=== PATIENT | male | born 1940 | race Caucasian/White ===

== ENCOUNTER 2018-11-11 13:41 | Inpatient (IN) | payer MEDICARE, OTHER ==
--- NOTE | 2018-11-11 13:51 | ED ---
Palpitations / Dysrhythmia - HPI Summary HPI Summary: This pt is an 78 y/o male presenting to [facility] via EMS for rapid heart rate. Pt reports he was playing golf yesterday 18 holes and it was warm. He states he had about 4 episodes of dizziness yesterday while he was playing. Pt notes he was drinking water yesterday and drank about 16 ounces of water while he was playing but he was also sweating a lot and it was warm. Patient went home and took his blood pressure last evening and his heart rate was 145 bpm. He notes his heart rate is normally 61 bpm. Pt went to see his PCP today and had an EKG. EKG revealed fast heart rate and was sent to the ED. EMS tried vagal maneuver with no effect. Hx of LBBB (for 25 years now). Denies hx of SVT. - History of Current Complaint Hx Obtained From: Patient Onset/Duration: Lasting Hours, Still Present Severity Currently: Moderate Character: Fast Aggravating: Nothing Alleviating: Nothing Associated Signs & Symptoms: Dizzy - Allergy/Home Medications Allergies/Adverse Reactions: Allergies Allergy/AdvReac Type Severity Reaction Status Date / Time No Known Allergies Allergy Verified 08/30/15 09:46 PMH/Surg Hx/FS Hx/Imm Hx Cardiovascular History: Reports: Hx Hypertension - borderline, Other Cardiovascular Problems/Disorders - LBBB GI History: Reports: Other GI Disorders - right flank pain History: Reports: Other Problems/Disorders - enlarged prostate Sensory History: Reports: Hx Cataracts - BILAT EYES, Hx Contacts or Glasses, Hx Hearing Aid - BILAT Opthamlomology History: Reports: Hx Cataracts - BILAT EYES, Hx Contacts or Glasses - Cancer History Cancer Type, Location and Year: skin, basal cell nose and chest - Surgical History Surgery Procedure, Year, and Place: vasectomy Hx Anesthesia Reactions: No Infectious Disease History: No Infectious Disease History: Denies: Traveled Outside the [place] in Last 30 Days - Family History Known Family History: Positive: Cardiac Disease Family History: Colon CA. - Social History Alcohol Use: Daily Alcohol Amount: 1 beer/day Substance Use Type: Reports: None Smoking Status (MU): Never Smoked Tobacco Type: Cigarettes Have You Smoked in the Last Year: No Review of Systems Negative: Fever Cardiovascular: Other - POSITIVE: rapid heart rate Neurological: Other - POSITIVE: dizziness All Other Systems Reviewed And Are Negative: Yes Physical Exam - Summary Physical Exam Summary: Constitutional: Well-developed, Well-nourished, Alert. (-) Distressed Skin: Warm, Dry HENT: Normocephalic; Atraumatic Eyes: Conjunctiva normal Neck: Musculoskeletal ROM normal neck. (-) JVD, (-) Stridor, (-) Nuchal rigidity Cardio: Tachycardic rate, Heart sounds normal; Intact distal pulses; Radial pulses are 2+ and symmetric. (-) Murmur Pulmonary/Chest wall: Effort normal. (-) Respiratory distress, (-) Wheezes, (-) Rales Abd: Soft, (-) tenderness, (-) Distension, (-) Guarding, (-) Rebound Musculoskeletal: (-) Edema Lymph: (-) Cervical adenopathy Neuro: Alert, Oriented x3 Psych: Mood and affect Normal Triage Information Reviewed: Yes Vital Signs On Initial Exam: Initial Vitals Temp Pulse Resp BP Pulse Ox 98.6 F 150 18 130/90 96 11/11/18 13:44 11/11/18 13:44 11/11/18 13:44 11/11/18 13:44 11/11/18 13:44 Vital Signs Reviewed: Yes Diagnostics - Vital Signs Vital Signs Temp Pulse Resp BP Pulse Ox 11/11/18 13:44 98.6 F 150 18 130/90 96 - Laboratory Result Diagrams: 11/11/18 13:49 11/11/18 13:49 Lab Statement: Any lab studies that have been ordered have been reviewed, and results considered in the medical decision making process. - Radiology Chest XR Radiology Interpretation Completed By: Radiologist Summary of Radiographic Findings: IMPRESSION: No evidence for active cardiopulmonary disease. Dr. Villagomez has reviewed this report. - EKG 13:41 Cardiac Rate: Tachycardia - at 149 bpm Summary of EKG Findings: Wide complex tachycardia. Old LBBB. No STEMI. Re-Evaluation - Re-Evaluation First Eval Re-Evaluation Time: 14:02 Comment: Tried adenosine 6 mg x1 and pt had 3 beats of aflutter. Will try 10 mg Diltiazem. Second Eval Re-Evaluation Time: 14:36 Comment: Will try another 10 mg of Diltiazem. trop elevated likely in setting of tachycardia Third Eval Re-Evaluation Time: 14:44 Change: Improved Comment: Hear rate in the low 120s. Plan for diltiazem drip and admission. Course/Dx - Course Course Of Treatment: 78-year-old male with a history of hypertension presents with tachycardia. - Initial EKG the wide-complex tachycardia. Concentrated at 150. Patient has an old left bundle branch block. Differential includes SVT w aberrancy versus atrial flutter/fibrillation. - Plan for adenosine 61 if patient does not convert will attempt diltiazem. Will d/w with cardiology - Diagnoses Provider Diagnoses: Atrial flutter - Physician Notifications Discussed Care Of Patient With: Zaki Jackson Time Discussed With Above Provider: 14:18 Instructed by Provider To: Other - Discussed with Dr. Jackson, iuss acoustic analyst, who will call back. [14:35] Dr. Jacskon believes it is flutter. [14:58] Spoke with Dr. Feng, chain testing machine operator, who reports to admit to hospitalist. [15:00] Discussed with Dr. Segovia, hospitalist, who accepted the pt for admission. - Critical Care Time Critical Care Time: 30-74 min Discharge - Sign-Out/Discharge Documenting (check all that apply): Patient Departure - Admit to [facility] Patient Received Moderate/Deep Sedation with Procedure: No - Discharge Plan Condition: Stable Disposition: ADMITTED TO [facility] - Billing Disposition and Condition Condition: STABLE Disposition: Admitted to [facility] - Attestation Statements Document Initiated by Jennifere: Yes Documenting Scribe: Inessa Osullivan Provider For Whom Scribe is Documenting (Include Credential): Noni Villagomez MD Scribe Attestation: I, Inessa Osullivan, scribed for Noni Villagomez MD on 11/11/18 at 1720. Scribe Documentation Reviewed: Yes Provider Attestation: The documentation as recorded by the Inessa cruz accurately reflects the service I personally performed and the decisions made by me, Noni Villagomez MD Status of Scribe Document: Viewed
[2018-11-11] MEDS ORDERED: Adenosine* 3 MG/ML VIAL ONE (13:53)
[2018-11-11] MEDS ORDERED: Adenosine* 3 MG/ML VIAL IV PUSH ONE (13:54)
[2018-11-11 13:58] LABS: Hematocrit 43 % (42-52); Hemoglobin 14.4 g/dL (14.0-18.0); Mean Corpuscular HGB Conc 34 g/dL (31-36); Mean Corpuscular Hemoglobin 32 pg (27-31); Mean Corpuscular Volume 95 fL (80-94); Mean Platelet Volume 8.3 fL (7.4-10.4); Platelet Count 211 10^3/uL (150-450); Red Blood Count 4.49 10^6 /uL (4.18-5.48); Red Cell Distribution Width 13 % (10-15); White Blood Count 14.5 10^3/uL (3.5-10.8)
[2018-11-11] MEDS ORDERED: Diltiazem IV push/loading dose 5 MG/ML 5 ML vial (25 mg) IV SLOW PU ONE ×2 (14:02→14:36)
[2018-11-11 14:17] LABS: ALT 17 U/L (7-52); AST 22 U/L (13-39); Albumin/Globulin Ratio 1.6 (1-3); Alkaline Phosphatase 79 U/L (34-104); Anion Gap 6 mmol/L (2-11); Blood Urea Nitrogen 22 mg/dL (6-24); CO2 Carbon Dioxide 22 mmol/L (22-32); Calcium 9.1 mg/dL (8.6-10.3); Chloride 109 mmol/L (101-111); EGFR African American 82.4 (>60); EGFR Non-African American 68.1 (>60); Globulin 2.5 g/dL (2-4); Glucose 95 mg/dL (70-100); Magnesium 2.1 mg/dL (1.9-2.7); Potassium 4.2 mmol/L (3.5-5.0); Sodium 137 mmol/L (135-145); Total Protein 6.5 g/dL (6.4-8.9)
[2018-11-11 14:23] LABS: Troponin I 0.17 ng/mL (<0.04)
--- OUTSIDE RECORDS SUMMARY | 2018-11-11 14:41 | XMS REPORT | Continuity of Care Document ---
:1940 External Reference #:[id number] Author Name Johnathon Dunbar M.D. Address [address] [place] [address] Care Team Providers Name Role Phone Ann Smalls MD Care Team Information Planner Scheduler Unavailable Ann Smalls MD Primary Care Physician Unavailable Payers Date Identification Numbers Payment Provider Subscriber Policy Number: [id number] [employer] Young Gardner PayID: [id number] [address] [place] [address] Problems Active Problems Provider Date Presence of intraocular lens Johnatohn Dunbar M.D. Onset: 08/24/2016 Viral conjunctivitis Johnathon Dunbar M.D. Onset: 09/23/2015 Convalescence after surgery Johnathon Dunbar M.D. Onset: 08/24/2015 Epiretinal membrane Johnathon Dunbar M.D. Onset: 08/01/2015 Degeneration of macula due to cyst, hole or Johnathon Dunbar M.D. Onset: 07/31 pseudohole Nuclear senile cataract Johnathon Dunbar M.D. Onset: 12/30/2013 Family History Date Family Member(s) Observation Comments Father Cancer Mother Heart Disease Social History Type Date Description Comments Sex Unknown ETOH Use Occasionally consumes alcohol Tobacco Use Start: Unknown End: Unknown Patient is a former smoker Smoking Status Reviewed: 10/24/18 Patient is a former smoker Allergies, Adverse Reactions, Alerts Description No Known Drug Allergies Medications Active Medications SIG Qnty Indications Ordering Provider Date Thera Tears Nutrition Johnathon Dunbar 12/30/2013 Trung Capsules Aspir-81 once per day by Unknown 81mg Tablets DR mouth [place] 3 Unknown Capsules Nifedipine ER 1 daily Unknown 60mg Tablets ER 24HR Finasteride Unknown 5mg Tablets History Medications Pazeo 1 drop left 2.500ml B30.9 Johnathon Dunbar 10/03/2015 - 0.7% Solution eye every day M.D. 08/24/2016 Ketorolac 1 drops right 10ml Johnathon Dunbar, 08/16/2015 - Tromethamine eye twice a M.D. 08/24/2016 0.5% day Solution Pred Forte 1 drops right 10ml Johnathon Dunbar, 08/16/2015 - 1% eye four times M.D. 08/24/2016 Suspension a day Stella Unknown - 0.5-0.4mg 10/24/2018 Capsules Vital Signs Date Vital Result Comment 10/24/2018 11:07am Intraocular Pressure Right Eye 15 mmHg Intraocular Pressure Left Eye 15 mmHg 08/24/2016 8:25am Intraocular Pressure Right Eye 16 mmHg Intraocular Pressure Left Eye 15 mmHg 09/07/2015 11:40am Intraocular Pressure Right Eye 21 mmHg Intraocular Pressure Left Eye 21 mmHg 08/31/2015 9:22am Intraocular Pressure Right Eye 21 mmHg Intraocular Pressure Left Eye 21 mmHg 08/24/2015 9:40am Intraocular Pressure Right Eye 21 mmHg 08/01/2015 10:06am Intraocular Pressure Right Eye 20 mmHg Intraocular Pressure Left Eye 20 mmHg 01/27/2015 8:22am Intraocular Pressure Right Eye 18 mmHg Intraocular Pressure Left Eye 18 mmHg 12/30/2013 9:58am Intraocular Pressure Right Eye 19 mmHg Intraocular Pressure Left Eye 18 mmHg Procedures Date Code Description Status 10/24/2018 02187 Fundus Photography W/Interpretation & Report Completed 10/24/2018 96922 Ophthalmoscopy Subsequent Completed 10/24/2018 94343 Eye Exam Est Comprehensive Completed 08/24/2016 51709 Oct Retina Completed 08/24/2016 50158 Refraction Completed 08/24/2016 67431 Eye Exam Est Intermediate Completed 08/30/2015 98391 Extracapsular Cataract Extraction W/Intraocular Lens Completed 08/23/2015 49978 Extracapsular Cataract Extraction W/Intraocular Lens Completed 08/01/2015 19360 Fundus Photography W/Interpretation & Report Completed 08/01/2015 19677 Eye Exam Est Intermediate Completed 01/27/2015 79232 Eye Exam Est Comprehensive Completed 12/30/2013 04667 Eye Exam Est Intermediate Completed 09/22/2010 81483 Refraction Completed 09/22/2010 35033 Eye Exam New Comprehensive Completed Encounters Type Date Location Provider Dx Diagnosis Office Visit 10/03/2015 Main Office Johnathon Dunbra, B30.9 Viral conjunctivitis, 4:00p M.D. unspecified Office Visit 09/23/2015 Main Office Johnathon Dunbar B30.9 Viral conjunctivitis, 2:15p M.D. unspecified Plan of Treatment 10/24/2018 - Johnathon Dunbar M.D.H35.341 Macular cyst, hole, or pseudohole, right eyeH35.033 Hypertensive retinopathy, [id number] Presence of intraocular lensFollow up:1 yr
[2018-11-11 14:44] LABS: ABS Basophils 0.1 10^3/ul (0-0.2); ABS Eosinophils 0.2 10^3/ul (0-0.6); ABS Lymphocytes 2.9 10^3/ul (1.0-4.8); ABS Monocytes 1.6 10^3/ul (0-0.8); ABS Neutrophils 9.6 10^3/ul (1.5-7.7); Eosinophil % 1.2 %; Lymphocyte % 20.3 %
[2018-11-11] MEDS ORDERED: NS 0.9% 1000 ML** 1,000 ML IV SCH ×2 (14:45→16:15)
[2018-11-11] MEDS ORDERED: Diltiazem DRIP* 100 MG/100 ML ADDV.BAG IV SCH (15:00)
[2018-11-11] MEDS ORDERED: Diltiazem IV BAG* D5W Premix 125 MG/125 ML BAG IV SCH ×2 (15:30)
[2018-11-11] MEDS ORDERED: Acetaminophen TAB* 325 MG PO PRN (15:50)
[2018-11-11] MEDS ORDERED: Al Hydrox/Mg Hydrox/Simet LIQ* 30 ML UDC PO PRN (15:50)
[2018-11-11] MEDS ORDERED: Enoxaparin(*) 80 MG/0.8 ML SYR SUBCUT SCH (16:30)
[2018-11-11] MEDS ORDERED: Digoxin IV* 0.5 MG/2 ML AMP (0.25 MG/ML) IV SLOW PU ONE (17:01)
--- NOTE | 2018-11-11 18:05 | HP ---
CC: Dr. Smalls; Dr. Jackson; Dr. Smith * HISTORY AND PHYSICAL: DATE OF ADMISSION: 11/11/18 PRIMARY CARE PROVIDER: Dr. Smalls. CHIEF COMPLAINT: Fast heart rate. HISTORY OF PRESENT ILLNESS: Mr. Gardner is a 77-year-old male with history of hypertension and BPH who is noted to have fast heart rate since yesterday. The patient stated that he played golf "18 holes" in a row in the past 2 days. Yesterday, when he was bending down, he felt somewhat dizzy, but then he also thought that he was dehydrated and it was very hot outside. He came back home and he checked his blood pressure; it was rather low in the low 100s and his heart rate was in the 150s. Otherwise, he complained of no chest pain or shortness of breath. He decided to "sleep on it." Today, in the morning, when he was checking his blood pressure, his heart rate was still fast and his blood pressure was still rather low. He came into the ED for evaluation and he was noted to be in wide ventricular tachycardia versus atrial flutter with aberrancy. The patient with history of left bundle-branch block and when adenosine was administered, he was noted to be in atrial flutter. He was diagnosed with atrial flutter with rapid ventricular response in a patient with history of left bundle-branch block. He was started on Cardizem drip. He is going to be admitted to the ICU. PAST MEDICAL HISTORY: 1. History of cataract surgery. 2. Hypertension. 3. History of left bundle-branch block. 4. History of vasectomy at the age of 33. 5. History of BPH, status post [address] Whitney. MEDICATIONS AT HOME: Include: 1. [place]-3 fatty acids 1 capsule daily. 2. Dutasteride/tamsulosin (Stella) 1 capsule daily. 3. Nifedipine ER 60 mg daily. ALLERGIES: No known drug allergies. FAMILY HISTORY: Positive for father who of colon cancer at the age of 63, was diagnosed at the age of 60. Mother who in her 90s secondary to pneumonia. SOCIAL HISTORY: The patient drinks a glass of wine a day. He denies any tobacco or drug use. He lives with his , who is his surrogate. 's name is Ann Gardner. REVIEW OF SYSTEMS: Please see history of present illness. All the remaining 12 systems were reviewed with the patient and were, otherwise, negative. PHYSICAL EXAMINATION GENERAL: The patient is a very pleasant 77-year-old male who is in no acute distress. Alert, awake, and oriented x3. VITAL SIGNS: Blood pressure of 180/88, heart rate of 153 and regular, respiratory rate 21, oxygen saturation 95% on 2 L of oxygen via nasal cannula, temperature of 98.6. HEENT: Head: Atraumatic, normocephalic. Eyes: Pupils are equal, reactive to light and accommodation. Oropharynx is clear. Mucosa moist. NECK: Supple. No JVD. No bruits bilaterally. RESPIRATORY: Clear to auscultation bilaterally. CARDIOVASCULAR: Regular rate and rhythm. No murmur. ABDOMEN: Soft, nontender. Bowel sounds are present in all 4 quadrants. EXTREMITIES: There is no edema. Pulses are +2 bilaterally. No clubbing or cyanosis. NEUROLOGIC EVALUATION: Speech is clear. Cranial nerves II through XII are grossly intact. Motor strength is 5/5 bilaterally. DIAGNOSTIC STUDIES/LAB DATA: Laboratory data showed sodium of 137, potassium 4.2, chloride 109, carbon dioxide 22, BUN 22, creatinine 1.05. Liver function tests unremarkable. Troponin of 0.17. White blood cell count 14.5, hemoglobin of 14.4, hematocrit of 43, and platelets of 211. INR of 1.1. D dimer below 200. The patient's EKG showed right ventricular arrhythmia with a heart rate of 149 beats per minute. Portable chest x-ray, impression: "No evidence of active cardiopulmonary disease." ASSESSMENT AND PLAN: 1. A 77-year-old male who presents with atrial flutter with rapid ventricular response. The patient is going to be continued on Cardizem drip. The case was discussed with Dr. Jackson. The patient is going to be admitted to the intensive care unit with titration of Cardizem drip. If that is unsuccessful, he is going to undergo SHERRY cardioversion likely in the morning. Unfortunately, we do not know the exact time when his atrial flutter started. The patient will receive intravenous hydration with normal saline of 1 L of bolus. I am going to place him on gentle intravenous hydration until the morning. 2. For the patient's benign prostatic hypertrophy, his home medications are going to be continued. 3. For DVT prophylaxis, the patient is at high risk. I will place him on Lovenox at 1 mg/kg for his atrial flutter. That would also cover DVT prophylaxis. 4. In regards to the patient's hypertension, his nifedipine is going to be held and he is going to be continued on Cardizem drip. 5. The patient's code status is full. His surrogate is his . TIME SPENT: Approximately 65 minutes were spent on the admission of this patient; more than half that time was spent [id number] with the patient during the interview and physical exam. [id number]/[facility]PS #: [id number] MTDD
[2018-11-11 20:34] LABS: Troponin I 0.23 ng/mL (<0.04)
[2018-11-11] MEDS: Enoxaparin(*) 80 MG/0.8 ML SYR SUBCUT SCH (21:40)
[2018-11-11] MEDS: Finasteride TAB* 5 MG PO SCH (21:40)
[2018-11-11] MEDS: Senna TAB 8.6 mg* TAB PO SCH (21:41)
[2018-11-11] MEDS: Docusate CAP* 100 MG PO SCH (21:41)
[2018-11-12 06:03] LABS: ABS Basophils 0.1 10^3/ul (0-0.2); ABS Eosinophils 0.2 10^3/ul (0-0.6); ABS Lymphocytes 2.1 10^3/ul (1.0-4.8); ABS Monocytes 1.4 10^3/ul (0-0.8); ABS Neutrophils 12.5 10^3/ul (1.5-7.7); Hematocrit 42 % (42-52); Hemoglobin 14.3 g/dL (14.0-18.0); Lymphocyte % 12.9 %; Mean Corpuscular HGB Conc 34 g/dL (31-36); Mean Corpuscular Hemoglobin 32 pg (27-31); Mean Corpuscular Volume 94 fL (80-94); Mean Platelet Volume 8.5 fL (7.4-10.4); Platelet Count 203 10^3/uL (150-450); Red Blood Count 4.44 10^6 /uL (4.18-5.48); Red Cell Distribution Width 13 % (10-15); White Blood Count 16.3 10^3/uL (3.5-10.8)
[2018-11-12 06:30] LABS: Anion Gap 7 mmol/L (2-11); BUN/Creatinine Ratio 16.5 (8-20); Blood Urea Nitrogen 16 mg/dL (6-24); CO2 Carbon Dioxide 23 mmol/L (22-32); Chloride 109 mmol/L (101-111); EGFR African American 90.1 (>60); EGFR Non-African American 74.5 (>60); Glucose 117 mg/dL (70-100); Potassium 4.2 mmol/L (3.5-5.0); Sodium 139 mmol/L (135-145)
[2018-11-12] MEDS: Senna TAB 8.6 mg* TAB PO SCH ×2 (07:15→21:35)
[2018-11-12] MEDS: Docusate CAP* 100 MG PO SCH ×2 (07:15→21:30)
[2018-11-12] MEDS ORDERED: Tamsulosin CAP* 0.4 MG PO SCH (09:00)
[2018-11-12] MEDS ORDERED: Metoprolol Tartrate IV* 1 MG/ML 5 ML VIAL ONE (09:29)
[2018-11-12] MEDS: Enoxaparin(*) 80 MG/0.8 ML SYR SUBCUT SCH ×2 (09:36→21:30)
[2018-11-12] MEDS ORDERED: Naloxone* 0.4 MG/ML 1 ML VIAL ONE (10:25)
[2018-11-12] MEDS ORDERED: Midazolam* 1 MG/ML 5 ML VIAL (5 MG) ONE (10:25)
[2018-11-12] MEDS ORDERED: fentaNYL* 50 MCG/ML 2 ML VIAL (100 MCG VIAL) ONE (10:25)
[2018-11-12] MEDS ORDERED: Flumazenil* 0.1 MG/ML 5 ML MDV ONE (10:26)
[2018-11-12] MEDS ORDERED: Lidocaine 2% VISCOUS* 15 ML UDC ONE (10:26)
[2018-11-12 12:10] LABS: C Reactive Protein 2.12 mg/L (<8.01); Cholesterol 136 mg/dL; Creatine Kinase 81 U/L (10-223); HDL Cholesterol 24.9 mg/dL; LDL Cholesterol 91 mg/dL; Triglycerides 99 mg/dL
--- NOTE | 2018-11-12 12:47 | CARD ---
CC: Dr. Smalls PROCEDURE NOTE: DATE OF PROCEDURE: 11/12/18 PROCEDURE: SHERRY-guided cardioversion. REASON FOR EVALUATION: This is a very pleasant 78-year-old gentleman who noted that he had a fast heart rate 2 days ago after playing golf in the heat. Yesterday, he went to see his primary doctor who has diagnosed with atrial flutter with a rapid ventricular response and was admitted. He was on IV diltiazem overnight, but persistent atrial flutter. A transesophageal echocardiogram-guided cardioversion was ordered. He denies any palpitations. So, the onset of the aflutter was uncertain. Although, he was at a doctor's office a week earlier and had a heart rate of 70 with his normal blood pressure in the 120s to 130s. Informed consent was obtained. The patient was premedicated with 4 mg of Versed and 25 mg of fentanyl for a SHERRY, which was performed. There was no evidence of intracardiac thrombus. However, there was severely decreased LV function with EF approximately 25%. He was given an additional mg of Versed and a single synchronized biphasic shock of 120 joules and converted to sinus bradycardia in the 50s. IMPRESSION: Atrial flutter with successful conversion to sinus bradycardia. Severe LV dysfunction with an EF of approximately 25%. Moderate MR. Mild atherosclerosis of the aorta. PLAN: 1. continue to treat him for his paroxysmal atrial arrhythmia 2. rx LV dysfunction 3. seek an etiology for the LV dysfunction. [id number] #: [id number] MTDD
--- NOTE | 2018-11-12 13:21 | CONS ---
CC: Dr. Smalls; Dr. Destiny Segovia; Dr. Henson CONSULTATION NOTE: DATE OF CONSULT: 11/12/18 PRIMARY CARE PROVIDER: Dr. Smalls. ATTENDING PHYSICIAN: Dr. Destiny Segovia. REASON FOR CONSULT: AFib and troponin elevation. HISTORY OF PRESENT ILLNESS: This is a very pleasant 77-year-old gentleman who has a history of hypertension and was in his usual state of health until Saturday , 11/10/18. At that time, he was playing golf, which is not unusual for him. He played the first 9 holes without a problem. He says sometime towards the 11th to 12th hole, he noticed that when he bent over and stood up, he felt lightheaded. This happened several times over the course of the afternoon. He felt more tired than usual. He said it was an extremely hot day and he attributed it to dehydration. After he finished his game, he had a beer and went home and he was feeling more tired than usual. He took his blood pressure and found that his machine said his blood pressure was 95/70 with a heart rate in the 140s. It is usually in the 120s and his heart rate is in the 60s to 70s. He had something to eat, had a Gatorade, and took a nap. Before he went to bed, he checked his blood pressure and had similar vital signs. The next day , he continued to feel tired and decided to go to his primary care doctor. He was noted to be in A flutter with rapid ventricular response. He was sent to the emergency room and had been treated with IV diltiazem overnight and subcu Lovenox. He denied any chest pain or shortness of breath with the episode. He said this morning he noticed that he has a mild pulling in his lower abdomen with an increase in inspiration, but no pain at rest. He denies orthopnea or peripheral edema. No syncope or near syncope. No previous cardiac issues, except he has been told of a left bundle-branch block dating back 25 years. He denied any fever, chills, or sweats. He had a normal bowel movement yesterday. No bleeding problems, no strokes or mini strokes, and no palpitations. He recently developed urinary incontinence and was started on finasteride about 6 months ago. About a week ago, he was started on Myrbetriq and took that for 5 days prior to Saturday when he developed the A-flutter. PAST MEDICAL HISTORY: Includes tobacco use discontinued 35 years ago. He denies asthma or emphysema. Left bundle-branch block was diagnosed 25 years ago. He does not recall any diagnostic testing being done. He has history of hypertension. He has an unknown cholesterol profile. He denies diabetes. He denies recent tobacco use. BPH. He has 1 beer and 1 cup of caffeinated coffee a day. He recently developed urinary incontinence and was started on finasteride about 6 months ago. About a week ago, he was started on Myrbetriq and took that for 5 days prior to Saturday when he developed the A-flutter. PAST SURGICAL HISTORY: Includes cataracts. MEDICATIONS: At home include: 1. Finasteride 5 mg at bedtime. 2. [place]-3 one tablet a day. 3. Nifedipine 60 mg a day. 4. Recently, he was on Myrbetriq. As an inpatient: 1. He is on IV diltiazem at 5 mg an hour. 2. He got 1 dose of IV metoprolol 5 mg. 3. He is on enoxaparin 80 mg subcu q.12 hours. 4. Finasteride 5 mg at bedtime. 5. Senna 1 tablet b.i.d. 6. Acetaminophen p.r.n. 7. Maalox Plus 30 cc q.6 hours p.r.n. ALLERGIES: He denies any drug allergies. FAMILY HISTORY: He had an older half brother and an older half sister who are . His mother at 80 and father of colon cancer at 63. SOCIAL HISTORY: He is and has 1 son. 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 He said he walks 9 holes of golf when he plays golf and he walked a mile last week. REVIEW OF SYSTEMS: Review of systems x10 was negative, except as above. PHYSICAL EXAM: General: He is a well-developed, well-nourished gentleman, in no apparent distress. Vital signs: Pulse 88, blood pressure 135/77. No significant JVD. Carotids are 2+ without bruits. No cervical adenopathy or thyromegaly. Extraocular muscles intact. Sclerae anicteric. Cardiac Exam: S1 , S2 without murmurs, gallops, or rubs. Irregular. Chest: Clear, no CVAT. Abdomen: Bowel sounds present. Nontender. Extremities: Femoral pulses are intact without bruits. Distal pulses intact. No edema. Neurologic: Motor strength 5/5 bilaterally. Deep tendon reflexes 2/4. Alert and oriented x3. DIAGNOSTIC STUDIES/LAB DATA: EKG revealed what appeared to be flutter with a rapid ventricular response in the 150s with a left bundle-branch block. Chest x-ray revealed no evidence for cardiopulmonary disease. Labs include elevated white count at 16, hemoglobin of 14.3, hematocrit of 42, platelet count of 203. D-dimer less than 200. Original troponin was 0.17 and has increased to 0.20, 0.23 last night, and 0.30 this morning. Electrolytes: Potassium 4.2, BUN of 16, creatinine of 0.97, magnesium was normal. IMPRESSION: My impression is that Mr. Gardner presents with fatigue and unusually high heart rates and low blood pressures and found to be in atrial flutter with rapid ventricular response. He has had some improvement in his heart rate and blood pressure with slowing in his heart rate. I did discuss with the patient and his and his son at the bedside the diagnosis and plan for further evaluation and treatment. He understands that the increased rate could predispose him to left ventricular dysfunction and ischemia, and he also understands atrial flutter increases the risk of cardioembolic events. Possible contributing causes include caffeine, alcohol, dehydration, hot weather , recent use of a new incontinence medication as well as his underlying age. He also has some inspiratory pain, which raises the possibility of an inflammatory process, perhaps pericarditis or myopericarditis, in the light of his elevated troponins, and coronary artery disease needs to be considered. It is unclear whether the troponins are from myocarditis, ischemia, or demand ischemia. PLAN AND RECOMMENDATIONS: For the time being, I recommend the followin. I suggested rate control with the addition of a low dose of metoprolol, which seems to have accomplished in the short term better control of his heart rate and allowing his blood pressure to increase. 2. I suggested anticoagulation. He is to have a SHERRY-guided cardioversion. The risks and benefits were explained. The patient understands this is not going to prevent future episodes, but hopefully will terminate this episode. 3. I asked him to decrease his intake of caffeine and alcohol and increase hydration. 4. He is to have a lipid profile. 5. He is to have a CRP and sed rate. 6. I will check TSH. Further recommendations will depend on his clinical course. [id number] #: [id number] WANG
--- NOTE | 2018-11-12 15:17 | TEE ---
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 History: Left bundle branch block. Risk factors: Hypertension. Conclusions Summary: - Left ventricle: Systolic function is severely reduced. The estimated ejection fraction is 20-25%. Severe global hypokinesis with more pronounced Hypokinesis of the anteroseptal, septal, and anterior myocardium. - Right ventricle: Systolic function is mildly reduced. - Left atrium: The atrium is severely dilated. The appendage is moderately dilated. Emptying velocity is reduced. There is no evidence of a thrombus in the atrial cavity or appendage. - Right atrium: The atrium is moderately dilated. - Mitral valve: There is moderate regurgitation. - Aortic valve: The valve is trileaflet. The leaflets are mildly thickened. The findings are consistent with very mild stenosis. - Tricuspid valve: There is mild-moderate regurgitation. Study data: Diagnostic Transesophageal Echocardiogram Consent: The risks and benefits of the procedure, including alternatives were discussed with the patient and/or their health care patient support representative and written informed consent was obtained. Procedure: Initial setup: The patient was brought to the laboratory in the fasting state.Intravenous access was obtained. Surface ECG leads, heart rate, heart rhythm, blood pressure measurements, pulse oximetric signals, and mainstream end-tidal CO2 tracings were monitored throughout the procedure. Sedation. Moderate sedation was administered by nursing staff. History and physical as well as labs were reviewed. An oral bite block was inserted for protection of oral dentition. The patient was placed in the left lateral decubitus position. Topical anesthesia was obtained using viscous lidocaine. A transesophageal probe was inserted by the attending tank cleaning supervisor. Transesophageal echocardiography was performed, image quality was good, and all standard views were attempted within the limitations of patient tolerance and safety. Multiple 2D, color flow Doppler and spectral Doppler images were obtained. The transesophageal probe was removed. A bubble study was performed. Location: ICU Patient status: Inpatient. Patient room number: 5. Study completion: The patient tolerated the procedure well. There were no complications. Administered medications: Midazolam, 4mg. Fentanyl, 25mcg. Rhythm: Atrial flutter. Findings Left ventricle: The cavity size is normal. Systolic function is severely reduced. The estimated ejection fraction is 20-25%. Severe diffuse hypokinesis. Regional wall motion abnormalities: Severe global hypokinesis with more pronounced Hypokinesis of the anteroseptal, septal, and anterior myocardium. Right ventricle: The cavity size is normal. Systolic function is mildly reduced. Ventricular septum: The interventricular septum appears dyssynchronous. Left atrium: The atrium is severely dilated. The appendage is moderately dilated. Emptying velocity is reduced. There is no evidence of a thrombus in the atrial cavity or appendage. Right atrium: The atrium is moderately dilated. The Eustachian valve appeared prominant. Atrial septum: A PFO is not demonstrated by color Doppler or agitated saline contrast. Mitral valve: The leaflets are normal thickness. There is no evidence of stenosis. There is moderate regurgitation. Aortic valve: The valve is trileaflet. The leaflets are mildly thickened. The findings are consistent with very mild stenosis. There is no significant regurgitation. Tricuspid valve: The leaflets are normal thickness. There is no evidence of stenosis. There is mild-moderate regurgitation. Pulmonic valve: The leaflets are normal thickness. There is no evidence of stenosis. There is trace regurgitation. Aorta: Aortic root: The aortic root is appears normal. Aortic arch: The aortic arch is calcified. Descending aorta: The descending aorta is calcified. Pericardium: There is no significant pericardial effusion. Pulmonary arteries: The main pulmonary artery is normal-sized. Systemic veins: Inferior vena cava: The vessel is normal in size. Superior vena cava: The vessel is appears normal. Pulmonary veins: The Pulmonary veins appear normal. Measurements Mitral valve Value Ref Aortic root Value Ref Peak E 0.82 m/sec ---- Root diam 1.7 cm <4.2 Peak A 0.02 m/sec ---- S-T junct diam, ED 2.9 cm 2.3 - 3.5 Decel time 190 ms ---- Peak grad, D 2.7 mm Hg ---- Peak E/A ratio 35.71 ---- Legend: (L) and (H) cristian values outside specified reference range. Prepared and electronically signed by Adryan Henson MD 11/12/2018 15:16
--- NOTE | 2018-11-12 16:19 | PN ---
Subjective Date of Service: 11/12/18 Interval History: patient seen this afternoon after his cardio version for his afib. Resting. sinus rhythm on tele. Few PAC's. no chest pain and no shortness of breath. Past Medical History: Unchanged from Admission Objective Active Medications: Acetaminophen (Tylenol Tab*) 650 mg PO Q4H PRN PRN Reason: pain-mild Al Hydrox/Mg Hydrox/Simethicone (Maalox Plus*) 30 ml PO Q6H PRN PRN Reason: INDIGESTION Docusate Sodium (Colace Cap*) 100 mg PO BID [facility] Last Admin: 11/12/18 07:15 Dose: Not Given Enoxaparin Sodium (Lovenox(*)) 80 mg SUBCUT Q12HR [facility] Last Admin: 11/12/18 09:36 Dose: 80 mg Finasteride (Proscar Tab*) 5 mg PO BEDTIME [facility] Last Admin: 11/11/18 21:40 Dose: 5 mg Senna (Senokot Tab*) 1 tab PO BID [facility] Last Admin: 11/12/18 07:15 Dose: Not Given Vital Signs - 8 hr 11/12/18 11/12/18 11/12/18 08:26 08:30 08:46 Temperature Pulse Rate 88 73 73 Respiratory 24 15 17 Rate Blood Pressure 121/74 121/101 114/81 (mmHg) O2 Sat by Pulse 93 91 91 Oximetry 11/12/18 11/12/18 11/12/18 09:00 09:16 09:30 Temperature Pulse Rate 80 72 119 Respiratory 20 13 18 Rate Blood Pressure 131/86 117/78 121/87 (mmHg) O2 Sat by Pulse 94 93 94 Oximetry 11/12/18 11/12/18 11/12/18 09:36 09:45 10:00 Temperature Pulse Rate 99 97 Respiratory 21 23 18 Rate Blood Pressure 111/90 135/77 (mmHg) O2 Sat by Pulse 91 92 Oximetry 11/12/18 11/12/18 11/12/18 10:01 10:02 10:17 Temperature Pulse Rate 133 96 73 Respiratory 26 21 26 Rate Blood Pressure 89/79 130/68 (mmHg) O2 Sat by Pulse 84 89 91 Oximetry 11/12/18 11/12/18 11/12/18 10:31 10:46 11:00 Temperature Pulse Rate 82 64 73 Respiratory 15 16 Rate Blood Pressure 117/68 132/74 120/68 (mmHg) O2 Sat by Pulse 93 93 93 Oximetry 11/12/18 11/12/18 11/12/18 11:01 11:13 11:16 Temperature Pulse Rate 75 116 118 Respiratory Rate Blood Pressure 131/80 121/89 (mmHg) O2 Sat by Pulse 94 94 93 Oximetry 11/12/18 11/12/18 11/12/18 11:21 11:26 11:30 Temperature Pulse Rate 101 86 89 Respiratory Rate Blood Pressure 94/77 110/71 88/69 (mmHg) O2 Sat by Pulse 91 91 91 Oximetry 11/12/18 11/12/18 11/12/18 11:35 11:40 11:46 Temperature Pulse Rate 99 55 53 Respiratory 24 22 Rate Blood Pressure 99/84 104/66 118/79 (mmHg) O2 Sat by Pulse 93 91 91 Oximetry 11/12/18 11/12/18 11/12/18 11:50 11:55 12:00 Temperature Pulse Rate 52 52 53 Respiratory 19 12 18 Rate Blood Pressure 108/64 108/64 108/67 (mmHg) O2 Sat by Pulse 91 93 91 Oximetry 11/12/18 11/12/18 11/12/18 12:01 12:03 12:15 Temperature Pulse Rate 52 54 51 Respiratory 21 16 19 Rate Blood Pressure 116/75 111/72 (mmHg) O2 Sat by Pulse 91 91 94 Oximetry 11/12/18 11/12/18 11/12/18 12:30 12:45 13:00 Temperature Pulse Rate 54 54 55 Respiratory 20 18 17 Rate Blood Pressure 117/74 111/71 116/70 (mmHg) O2 Sat by Pulse 93 95 94 Oximetry 11/12/18 11/12/18 11/12/18 13:15 13:30 13:46 Temperature Pulse Rate 53 57 61 Respiratory 20 18 19 Rate Blood Pressure 124/72 128/74 126/67 (mmHg) O2 Sat by Pulse 94 94 94 Oximetry 11/12/18 11/12/18 11/12/18 14:00 14:01 14:16 Temperature Pulse Rate 62 64 60 Respiratory 19 22 23 Rate Blood Pressure 115/90 131/97 (mmHg) O2 Sat by Pulse 95 95 96 Oximetry 11/12/18 11/12/18 11/12/18 14:31 14:46 15:00 Temperature Pulse Rate 65 65 62 Respiratory 21 22 25 Rate Blood Pressure 87/76 127/65 125/68 (mmHg) O2 Sat by Pulse 97 96 94 Oximetry 11/12/18 11/12/18 11/12/18 15:15 15:30 15:32 Temperature 97.8 F Pulse Rate 61 61 Respiratory 19 18 Rate Blood Pressure 120/68 117/75 (mmHg) O2 Sat by Pulse 97 96 Oximetry 11/12/18 16:00 Temperature Pulse Rate 65 Respiratory 18 Rate Blood Pressure 133/66 (mmHg) O2 Sat by Pulse 95 Oximetry Oxygen Devices in Use Now: None Appearance: awake, alert. no distress Eyes: No Scleral Icterus, - Ears/Nose/Mouth/Throat: NL Teeth, Lips, Gums, Mucous Membranes Moist Neck: NL Appearance and Movements; NL JVP, Trachea Midline Respiratory: Symmetrical Chest Expansion and Respiratory Effort, Clear to Auscultation Cardiovascular: NL Sounds; No Murmurs; No JVD, RRR, No Edema Abdominal: NL Sounds; No Tenderness; No Distention Extremities: No Edema, No Clubbing, Cyanosis Skin: No Rash or Ulcers Neurological: Alert and Oriented x 3 Result Diagrams: 11/12/18 05:53 11/12/18 05:53 Microbiology and Other Data: Microbiology 11/11/18 16:25 Nasal Screen MRSA (PCR) - Final Nasal Mrsa Not Detected Assess/Plan/Problems-Billing Assessment: 78 y/o male admitted for Afib with RVR - Patient Problems (1) Atrial flutter with rapid ventricular response Current Visit: Yes Status: Acute Code(s): I48.92 - UNSPECIFIED ATRIAL FLUTTER SNOMED Code(s): 8992213 Comment: - s/p SHERRY and cardioversion this morning by Dr. Henson, converted to sinus rhytm - Off cardizem drip. Given his pac's I am concerned he may revert back to Aflutter. I discussed with Dr. Henson and recommended Amio 150 mg IV now followed by the 400 mg P now and than 400 mg bid starting tomorrow. - Transfer to [facility] after the 150 mg IV bolus - Next agent to consider carvedilol pending his response to BP and Pulse (2) Hypertension Current Visit: Yes Status: Acute Code(s): I10 - ESSENTIAL (PRIMARY) HYPERTENSION SNOMED Code(s): 56614950 Comment: - Amiodarone for now for his rate pending his response to consider coreg (3) LBBB (left bundle branch block) Current Visit: Yes Status: Acute Code(s): I44.7 - LEFT BUNDLE-BRANCH BLOCK, UNSPECIFIED SNOMED Code(s): 12856680 (4) Cardiomyopathy Current Visit: Yes Status: Acute Code(s): I42.9 - CARDIOMYOPATHY, UNSPECIFIED SNOMED Code(s): 99444350 Comment: - Knewly diagnosed systollic. - Consider cath to assess for any CAD (5) DVT prophylaxis Current Visit: Yes Status: Acute Code(s): Z29.9 - ENCOUNTER FOR PROPHYLACTIC MEASURES, UNSPECIFIED SNOMED Code(s): 013393609 Comment: - Lovenox for now for anticoagulation for his afib
[2018-11-12] MEDS ORDERED: Amiodarone TAB* 400 MG PO ONE (16:24)
[2018-11-12] MEDS ORDERED: Amiodarone 150 MG IVPREMIX* 150 MG/100 ML BAG IV ONE (16:24)
[2018-11-12 20:28] LABS: Erythrocyte Sed Rate 4 mm/Hr (0-19)
[2018-11-12] MEDS: Finasteride TAB* 5 MG PO SCH (21:30)
[2018-11-13 06:11] LABS: Hematocrit 40 % (42-52); Hemoglobin 13.4 g/dL (14.0-18.0); Mean Corpuscular HGB Conc 33 g/dL (31-36); Mean Corpuscular Hemoglobin 32 pg (27-31); Mean Corpuscular Volume 95 fL (80-94); Mean Platelet Volume 8.8 fL (7.4-10.4); Platelet Count 179 10^3/uL (150-450); Red Blood Count 4.25 10^6 /uL (4.18-5.48); Red Cell Distribution Width 13 % (10-15); White Blood Count 16.5 10^3/uL (3.5-10.8)
[2018-11-13 06:14] LABS: ABS Basophils 0.1 10^3/ul (0-0.2); ABS Eosinophils 0.1 10^3/ul (0-0.6); ABS Monocytes 1.7 10^3/ul (0-0.8); ABS Neutrophils 12.7 10^3/ul (1.5-7.7); Eosinophil % 0.5 %
[2018-11-13 06:32] LABS: BUN/Creatinine Ratio 20.4 (8-20); Calcium 8.9 mg/dL (8.6-10.3); EGFR African American 79.6 (>60); EGFR Non-African American 65.8 (>60); Phosphorus 3.1 mg/dL (2.5-5.0); Potassium 4.3 mmol/L (3.5-5.0)
[2018-11-13] MEDS ORDERED: Captopril TAB* 12.5 MG PO SCH (09:00)
[2018-11-13] MEDS ORDERED: Lisinopril TAB* 5 MG PO SCH (10:00)
--- NOTE | 2018-11-13 10:00 | PN ---
Subjective Date of Service: 11/13/18 Interval History: f/u systolic dysfunction/CHF, atrial flutter patient ambulating around hallways, wants to go home, willing to stay until tomorrow has mild HERNANDEZ no chest discomfort brief loss of sinus this AM with reliable ventricular rhythm in 40's Medications Active Medications: Acetaminophen (Tylenol Tab*) 650 mg PO Q4H PRN PRN Reason: pain-mild Al Hydrox/Mg Hydrox/Simethicone (Maalox Plus*) 30 ml PO Q6H PRN PRN Reason: INDIGESTION Amiodarone HCl (Cordarone Tab*) 400 mg PO BID [facility] Docusate Sodium (Colace Cap*) 100 mg PO BID [facility] Last Admin: 11/12/18 21:30 Dose: 100 mg Enoxaparin Sodium (Lovenox(*)) 80 mg SUBCUT Q12HR [facility] Last Admin: 11/12/18 21:30 Dose: 80 mg Finasteride (Proscar Tab*) 5 mg PO BEDTIME [facility] Last Admin: 11/12/18 21:30 Dose: 5 mg Lisinopril (Prinivil Tab*) 5 mg PO DAILY [facility] Senna (Senokot Tab*) 1 tab PO BID [facility] Last Admin: 11/12/18 21:35 Dose: Not Given Objective Vital Signs: Temp Pulse Resp BP Pulse Ox 99.5 F 64 18 133/67 98 11/13/18 03:49 11/13/18 03:49 11/13/18 03:49 11/13/18 03:49 11/13/18 03:49 Oxygen Devices in Use Now: None Appearance: nad, pleasant Ears/Nose/Mouth/Throat: Clear Oropharnyx, Mucous Membranes Moist Neck: NL Appearance and Movements; NL JVP, Trachea Midline Respiratory: Symmetrical Chest Expansion and Respiratory Effort, Clear to Auscultation Cardiovascular: NL Sounds; No Murmurs; No JVD, RRR, No Edema Abdominal: NL Sounds; No Tenderness; No Distention Extremities: No Edema Skin: No Rash or Ulcers Neurological: Alert and Oriented x 3 Laboratory Results: 11/13/18 05:12 11/13/18 05:12 INR (Anticoag Therapy) 1.10 (0.82-1.09) H 11/11/18 13:49 Total Bilirubin 0.60 mg/dL (0.2-1.0) 07/30/19 13:49 AST 22 U/L (13-39) 11/11/18 13:49 ALT 17 U/L (7-52) 11/11/18 13:49 Alkaline Phosphatase 79 U/L (34-104) 11/11/18 13:49 Total Protein 6.5 g/dL (6.4-8.9) 11/11/18 13:49 Albumin 4.0 g/dL (3.2-5.2) 11/11/18 13:49 Globulin 2.5 g/dL (2-4) 11/11/18 13:49 Albumin/Globulin Ratio 1.6 (1-3) 11/11/18 13:49 Triglycerides 99 mg/dL 11/12/18 05:53 Cholesterol 136 mg/dL 11/12/18 05:53 LDL Cholesterol 91 mg/dL 11/12/18 05:53 HDL Cholesterol 24.9 mg/dL 11/12/18 05:53 TSH 2.28 mcIU/mL (0.34-5.60) 11/12/18 18:14 11/11/18 11/11/18 11/11/18 13:49 16:07 19:52 Troponin I 0.17 H* 0.20 H* 0.23 H* 11/12/18 05:53 Troponin I 0.30 H* Diagnostic Imaging: Transesophageal Echocardiogram 11/12/2018 Conclusions Summary: - Left ventricle: Systolic function is severely reduced. The estimated ejection fraction is 20-25%. Severe global hypokinesis with more pronounced Hypokinesis of the anteroseptal, septal, and anterior myocardium. - Right ventricle: Systolic function is mildly reduced. - Left atrium: The atrium is severely dilated. The appendage is moderately dilated. Emptying velocity is reduced. There is no evidence of a thrombus in the atrial cavity or appendage. - Right atrium: The atrium is moderately dilated. - Mitral valve: There is moderate regurgitation. - Aortic valve: The valve is trileaflet. The leaflets are mildly thickened. The findings are consistent with very mild stenosis. - Tricuspid valve: There is mild-moderate regurgitation. EKG Data: 11/11/2018: atrial flutter 2:1 150 bpm, LBBB ekg 11/12/2018 post-CV sinus arrest, reliable junctional escape 53 bpm, LBBB ekg 11/13/2018 NSR 70 bpm, LBBB, QRS > 150 ms Assessment/Plan 1. Atrial flutter s/p cardioversion 2. LBBB - Longstanding - QRS > 150 bpm - Evidence of sinus node dysfunction asymptomatic at this point 3. Systolic HF/dysfunction - Moderate MR 4. HTN - Change AceI to lisinopril 5 mg po daily (ordered) - Continue amiodarone, will adjust dose prior to d/c - d/c nifedipine - Hold on BB for now - Continue lovenox for now, will change to eliquis prior to d/c - continue telemetry - Full echo 11/14/2018 to re-evaluate LVEF s/p CV (ordered) - Further recommendations pending above Thank you for allowing me to participate in the cardiovascular care of this patient. Please do not hesitate to contact me with questions or concerns.
[2018-11-13] MEDS: Docusate CAP* 100 MG PO SCH ×2 (10:29→20:55)
[2018-11-13] MEDS: Senna TAB 8.6 mg* TAB PO SCH ×2 (10:30→20:55)
[2018-11-13] MEDS: Enoxaparin(*) 80 MG/0.8 ML SYR SUBCUT SCH ×2 (10:31→20:55)
[2018-11-13] MEDS: Amiodarone TAB* 400 MG PO SCH ×2 (10:31→20:54)
--- NOTE | 2018-11-13 18:03 | PN ---
Subjective Date of Service: 11/13/18 Interval History: patient seen this morning. denies any chest pain or shortness of breath. He is having Wide complex Tachycardia with LBBB today. asymptomatic Past Medical History: Unchanged from Admission Objective Active Medications: Acetaminophen (Tylenol Tab*) 650 mg PO Q4H PRN PRN Reason: pain-mild Al Hydrox/Mg Hydrox/Simethicone (Maalox Plus*) 30 ml PO Q6H PRN PRN Reason: INDIGESTION Amiodarone HCl (Cordarone Tab*) 400 mg PO BID [facility] Last Admin: 11/13/18 10:31 Dose: 400 mg Docusate Sodium (Colace Cap*) 100 mg PO BID [facility] Last Admin: 11/13/18 10:29 Dose: 100 mg Enoxaparin Sodium (Lovenox(*)) 80 mg SUBCUT Q12HR [facility] Last Admin: 11/13/18 10:31 Dose: 80 mg Finasteride (Proscar Tab*) 5 mg PO BEDTIME [facility] Last Admin: 11/12/18 21:30 Dose: 5 mg Lisinopril (Prinivil Tab*) 5 mg PO DAILY [facility] Last Admin: 11/13/18 10:30 Dose: 5 mg Senna (Senokot Tab*) 1 tab PO BID [facility] Last Admin: 11/13/18 10:30 Dose: 1 tab Vital Signs - 8 hr 11/13/18 11/13/18 11:15 15:15 Temperature 98.2 F 97.9 F Pulse Rate 64 64 Respiratory 16 20 Rate Blood Pressure 145/68 136/67 (mmHg) O2 Sat by Pulse 95 97 Oximetry Oxygen Devices in Use Now: None Appearance: awake, alert. no distress Eyes: No Scleral Icterus Ears/Nose/Mouth/Throat: NL Teeth, Lips, Gums, Mucous Membranes Moist Neck: NL Appearance and Movements; NL JVP, Trachea Midline Respiratory: Symmetrical Chest Expansion and Respiratory Effort, Clear to Auscultation Cardiovascular: NL Sounds; No Murmurs; No JVD, No Edema Abdominal: NL Sounds; No Tenderness; No Distention Extremities: No Edema Skin: No Rash or Ulcers Neurological: Alert and Oriented x 3 Result Diagrams: 11/13/18 05:12 11/13/18 05:12 Microbiology and Other Data: Microbiology 11/11/18 16:25 Nasal Screen MRSA (PCR) - Final Nasal Mrsa Not Detected Assess/Plan/Problems-Billing Assessment: 78 y/o male admitted for Afib with RVR - Patient Problems (1) Atrial flutter with rapid ventricular response Current Visit: Yes Status: Acute Code(s): I48.92 - UNSPECIFIED ATRIAL FLUTTER SNOMED Code(s): 8654267 Comment: - s/p SHERRY and cardioversion 11/12/[address] Henson, converted to sinus rhytm - Off cardizem drip. s/p Amio 150 mg IV followed by 400 mg PO bid. - Next agent to consider carvedilol pending his response to BP and Pulse (2) Hypertension Current Visit: Yes Status: Acute Code(s): I10 - ESSENTIAL (PRIMARY) HYPERTENSION SNOMED Code(s): 40233958 Comment: - Amiodarone for now for his rate pending his response to consider coreg - Lisinopril 5 mg daily (3) LBBB (left bundle branch block) Current Visit: Yes Status: Acute Code(s): I44.7 - LEFT BUNDLE-BRANCH BLOCK, UNSPECIFIED SNOMED Code(s): 52371697 Comment: - chronic (4) Cardiomyopathy Current Visit: Yes Status: Acute Code(s): I42.9 - CARDIOMYOPATHY, UNSPECIFIED SNOMED Code(s): 89653665 Comment: - Knewly diagnosed systollic. - Consider cath to assess for any CAD - Lisinopril 5 mg daily - Repeat Echo in am now that his rate controlled (5) DVT prophylaxis Current Visit: Yes Status: Acute Code(s): Z29.9 - ENCOUNTER FOR PROPHYLACTIC MEASURES, UNSPECIFIED SNOMED Code(s): 878249391 Comment: - Lovenox for now for anticoagulation for his afib
[2018-11-13 19:18] LABS: Urine Appearance Clear; Urine Bacteria Absent (Absent); Urine Bilirubin Negative (Negative); Urine Blood Negative (Negative); Urine Color Yellow; Urine Glucose Negative (Negative); Urine Ketones Negative (Negative); Urine Nitrite Negative (Negative); Urine Protein Negative (Negative); Urine Red Blood Cell Trace(0-2/hpf) (Absent); Urine Urobilinogen Negative (Negative); Urine White Blood Cell Trace(0-5/hpf) (Absent)
[2018-11-13] MEDS: Finasteride TAB* 5 MG PO SCH (20:55)
[2018-11-14 06:09] LABS: Hematocrit 36 % (42-52); Hemoglobin 12.4 g/dL (14.0-18.0); Mean Corpuscular HGB Conc 35 g/dL (31-36); Mean Corpuscular Hemoglobin 33 pg (27-31); Mean Corpuscular Volume 95 fL (80-94); Mean Platelet Volume 9.2 fL (7.4-10.4); Platelet Count 155 10^3/uL (150-450); Red Cell Distribution Width 13 % (10-15); White Blood Count 13.8 10^3/uL (3.5-10.8)
[2018-11-14 06:10] LABS: ABS Basophils 0.1 10^3/ul (0-0.2); ABS Eosinophils 0.1 10^3/ul (0-0.6); ABS Lymphocytes 1.5 10^3/ul (1.0-4.8); ABS Monocytes 1.6 10^3/ul (0-0.8); ABS Neutrophils 10.6 10^3/ul (1.5-7.7); Eosinophil % 0.8 %; Lymphocyte % 10.6 %
[2018-11-14 06:25] LABS: BUN/Creatinine Ratio 17.8 (8-20); Calcium 8.8 mg/dL (8.6-10.3); EGFR African American 80.5 (>60); EGFR Non-African American 66.5 (>60); Phosphorus 2.5 mg/dL (2.5-5.0)
[2018-11-14] MEDS ORDERED: Perflutren Lipid Microsphere* 3 ML VIAL ONE (07:43)
--- NOTE | 2018-11-14 08:55 | ECHO ---
*[facility]* [place] [address] Fax #: [phone] Transthoracic Echocardiogram Patient: Young Gardner : 1940 Study Date: 11/14/2018 Age: 78 Gender: M HR: 67 bpm Height: 70 in /177.8 cm BSA: 2.04 m^2 Weight: 189.6 lb /86.2 kg BMI: 27.3 kg/m^2 *House Superintendent: Rosanne Ch [facility] *Referring Physician: * Robe Hernandez MD *Reading Physician: Robe Black MD Indications: Congestive Heart Failure. History: Atrial flutter, with left bundle branch block. Risk factors: Hypertension. Conclusions Summary: - Procedure narrative: Transthoracic echocardiography was performed. Image quality was suboptimal. Intravenous Definity , 3 mlswas administered. - Left ventricle: The cavity size is normal. Wall thickness is mildly increased. Systolic function is severely reduced. The estimated ejection fraction is 25-30%. Global diffuse hypokinesis with mild segmental variation, abnormal septal motion consistent with LBBB.. - Right ventricle: The cavity size is normal. Systolic function is normal. - Left atrium: The atrium is moderately dilated. - Mitral valve: There is trace regurgitation. - Aortic valve: Thickening, consistent with sclerosis. - Pulmonary arteries: Systolic pressure is mildly to moderately increased. The peak pressure during systole by Doppler is 49.0 mm Hg. Recommendations: Compared to transesophageal echocardiogram from 11/12/2018, LVEF slightly improved from 20-25% but remains severely reduced. Mitral regurgitation was previously moderate while in atrial flutter, now in sinus rhythm. Study data: Transthoracic echocardiogram. Procedure: Transthoracic echocardiography was performed. Image quality was suboptimal. Intravenous Definity , 3 mlswas administered. Complete 2D, spectral Doppler, and color flow Doppler. Location: Bedside. Patient status: Inpatient. Patient room number: 432. Rhythm: Normal sinus rhythm. Findings Left ventricle: The cavity size is normal. Wall thickness is mildly increased. Systolic function is severely reduced. The estimated ejection fraction is 25-30%. Global diffuse hypokinesis with mild segmental variation, abnormal septal motion consistent with LBBB.. There is no consistent Doppler evidence of clinically significant diastolic dysfunction. Right ventricle: The cavity size is normal. Systolic function is normal. Left atrium: The atrium is moderately dilated. Right atrium: The atrium is normal in size. Mitral valve: The leaflets are normal thickness. There is no evidence of stenosis. There is trace regurgitation. Aortic valve: The valve is trileaflet. The leaflets are mildly thickened. Thickening, consistent with sclerosis. There is no significant regurgitation. Tricuspid valve: The leaflets are normal thickness. There is no evidence of stenosis. There is mild regurgitation. Pulmonic valve: Not well visualized. There is no significant regurgitation. Aorta: Aortic root: The aortic root is appears normal. Ascending aorta: The ascending aorta is appears normal. Aortic arch: The aortic arch is poorly visualized. Pericardium: There is no significant pericardial effusion. Pulmonary arteries: Not well visualized. Systolic pressure is mildly to moderately increased. Systemic veins: Inferior vena cava: The vessel is dilated. There is (< 50%) respiratory change in the IVC dimension. Measurements Left ventricle Value Ref Aortic valve Value Ref JEANNINE, LAX 5.4 cm 4.2 - 5.8 Travis diam, ED 2.1 cm ----- ESD, LAX (H) 4.5 cm 2.5 - 4.0 Peak v, S 1.55 m/sec ----- FS, LAX (L) 16 % 25 - 43 VTI, S 31.9 cm ----- PW, ED, LAX 1.0 cm 0.6 - 1.0 Mean grad, S 5.0 mm Hg ----- EF (L) 34 % 52 - 72 Peak grad, S 10.0 mm Hg ----- E', lat travis, TDI 11.5 cm/sec >=10.0 E/e', lat travis, 8 Mitral valve Value Ref TDI Peak E 0.92 m/sec ----- E', med travis, TDI (L) 4.5 cm/sec >=7.0 Peak A 0.61 m/sec --- -- E/e', med travis, 20 Decel time 214 ms ----- TDI Peak grad, D 3.4 mm Hg ----- E', avg, TDI 8.0 cm/sec Peak E/A ratio 1.5 ----- E/e', avg, TDI 12 <=14 Tricuspid valve Value Ref LVOT Value Ref TR peak v (H) 3.2 m/sec <=2.8 Peak pedro, S 1.11 m/sec Peak RV-RA grad, S 41 mm Hg ----- Mean grad, S 2 mm Hg Aortic root Value Ref Ventricular septum Value Ref Root diam 3.1 cm <4.2 IVS, ED (H) 1.2 cm 0.6 - 1.0 Ascending aorta Value Ref Right ventricle Value Ref AAo AP diam, S 3.0 cm ----- JEANNINE, LAX 3.1 cm JEANNINE minor ax, A4C 3.4 cm 1.9 - 3.5 Decending aorta Value Ref mid Olivia peak pedro 0.77 m/sec ----- Pressure, S 49 mm Hg Pulmonary artery Value Ref Left atrium Value Ref Pressure, S 49.0 mm Hg ----- AP dim, ES (H) 4.70 cm 3.00 - 4.00 Inferior vena cava Value Ref ML dim, A4C 4.1 cm Diam 2.6 cm ----- SI dim, A4C 5.9 cm Right atrium Value Ref SI dim, ES 5.3 cm 3.4 - 5.3 ML dim, ES, A4C 3.7 cm 2.6 - 4.4 Estimated RAP 8 mm Hg Legend: (L) and (H) cristian values outside specified reference range. Prepared and electronically signed by Robe Hernandez MD 11/14/2018 08:54
[2018-11-14] MEDS: Senna TAB 8.6 mg* TAB PO SCH (08:58)
[2018-11-14] MEDS: Docusate CAP* 100 MG PO SCH (08:58)
[2018-11-14] MEDS ORDERED: Lisinopril TAB* 5 MG PO SCH (09:00)
[2018-11-14] MEDS ORDERED: Lisinopril TAB* 10 MG PO SCH (09:12)
--- NOTE | 2018-11-14 09:40 | PN ---
Subjective Date of Service: 11/14/18 Interval History: f/u systolic dysfunction/CHF, atrial flutter patient ambulating around hallways multiple times no longer dyspneic no chest pain, lightheadedness or syncope tele brief atrial tachyarrhythmia, no sustained arrhythmias. occasional marked sinus bradycardia with AV dissocation and reliable escape 40's Medications Active Medications: Acetaminophen (Tylenol Tab*) 650 mg PO Q4H PRN PRN Reason: pain-mild Al Hydrox/Mg Hydrox/Simethicone (Maalox Plus*) 30 ml PO Q6H PRN PRN Reason: INDIGESTION Amiodarone HCl (Cordarone Tab*) 400 mg PO BID [facility] Last Admin: 11/13/18 20:54 Dose: 400 mg Apixaban (Eliquis*) 5 mg PO BID [facility] Docusate Sodium (Colace Cap*) 100 mg PO BID [facility] Last Admin: 11/14/18 08:58 Dose: Not Given Finasteride (Proscar Tab*) 5 mg PO BEDTIME [facility] Last Admin: 11/13/18 20:55 Dose: 5 mg Lisinopril (Prinivil Tab*) 10 mg PO DAILY [facility] Senna (Senokot Tab*) 1 tab PO BID [facility] Last Admin: 11/14/18 08:58 Dose: Not Given Objective Vital Signs: Temp Pulse Resp BP Pulse Ox 98.8 F 70 16 144/67 95 11/14/18 08:00 11/14/18 08:00 11/14/18 08:00 11/14/18 08:00 11/14/18 08:00 Oxygen Devices in Use Now: None Appearance: nad, pleasant Ears/Nose/Mouth/Throat: Clear Oropharnyx, Mucous Membranes Moist Neck: NL Appearance and Movements; NL JVP, Trachea Midline Respiratory: Symmetrical Chest Expansion and Respiratory Effort, Clear to Auscultation Cardiovascular: NL Sounds; No Murmurs; No JVD, RRR, No Edema Abdominal: NL Sounds; No Tenderness; No Distention Extremities: No Edema Skin: No Rash or Ulcers Neurological: Alert and Oriented x 3 Laboratory Results: 11/14/18 05:15 11/14/18 05:15 INR (Anticoag Therapy) 1.10 (0.82-1.09) H 11/11/18 13:49 Total Bilirubin 0.60 mg/dL (0.2-1.0) 11/11/18 13:49 AST 22 U/L (13-39) 11/11/18 13:49 ALT 17 U/L (7-52) 11/11/18 13:49 Alkaline Phosphatase 79 U/L (34-104) 11/11/18 13:49 Total Protein 6.5 g/dL (6.4-8.9) 11/11/18 13:49 Albumin 4.0 g/dL (3.2-5.2) 11/11/18 13:49 Globulin 2.5 g/dL (2-4) 11/11/18 13:49 Albumin/Globulin Ratio 1.6 (1-3) 11/11/18 13:49 Triglycerides 99 mg/dL 11/12/18 05:53 Cholesterol 136 mg/dL 11/12/18 05:53 LDL Cholesterol 91 mg/dL 11/12/18 05:53 HDL Cholesterol 24.9 mg/dL 11/12/18 05:53 TSH 2.28 mcIU/mL (0.34-5.60) 11/12/18 18:14 11/11/18 11/11/18 11/11/18 13:49 16:07 19:52 Troponin I 0.17 H* 0.20 H* 0.23 H* 11/12/18 05:53 Troponin I 0.30 H* Diagnostic Imaging: Transesophageal Echocardiogram 11/12/2018 Conclusions Summary: - Left ventricle: Systolic function is severely reduced. The estimated ejection fraction is 20-25%. Severe global hypokinesis with more pronounced Hypokinesis of the anteroseptal, septal, and anterior myocardium. - Right ventricle: Systolic function is mildly reduced. - Left atrium: The atrium is severely dilated. The appendage is moderately dilated. Emptying velocity is reduced. There is no evidence of a thrombus in the atrial cavity or appendage. - Right atrium: The atrium is moderately dilated. - Mitral valve: There is moderate regurgitation. - Aortic valve: The valve is trileaflet. The leaflets are mildly thickened. The findings are consistent with very mild stenosis. - Tricuspid valve: There is mild-moderate regurgitation. Transthoracic Echocardiogram Study Date: 11/14/2018 Conclusions Summary: - Procedure narrative: Transthoracic echocardiography was performed. Image quality was suboptimal. Intravenous Definity , 3 mlswas administered. - Left ventricle: The cavity size is normal. Wall thickness is mildly increased. Systolic function is severely reduced. The estimated ejection fraction is 25-30%. Global diffuse hypokinesis with mild segmental variation, abnormal septal motion consistent with LBBB.. - Right ventricle: The cavity size is normal. Systolic function is normal. - Left atrium: The atrium is moderately dilated. - Mitral valve: There is trace regurgitation. - Aortic valve: Thickening, consistent with sclerosis. - Pulmonary arteries: Systolic pressure is mildly to moderately increased. The peak pressure during systole by Doppler is 49.0 mm Hg. Recommendations: Compared to transesophageal echocardiogram from 11/12/2018, LVEF slightly improved from 20-25% but remains severely reduced. Mitral regurgitation was previously moderate while in atrial flutter, now in sinus rhythm. EKG Data: 11/11/2018: atrial flutter 2:1 150 bpm, LBBB ekg 11/12/2018 post-CV sinus arrest, reliable junctional escape 53 bpm, LBBB ekg 11/13/2018 NSR 70 bpm, LBBB, QRS > 150 ms Assessment/Plan 1. Atrial flutter s/p cardioversion 2. LBBB - Longstanding - QRS > 150 bpm - Evidence of sinus node dysfunction asymptomatic at this point 3. Systolic dysfunction 4. HTN - Increase lisinopril from 5 to 10 mg po daily (ordered) - Continue amiodarone, decrease to 400 mg po daily at discharge until follow up - d/c nifedipine - Hold on BB for now - Change lovenox to eliquis (ordered) We had a long discussion about patients cardiac status and whether the systolic dysfunction is longstanding related to LBBB, related arrhythmia or related to CAD. We discussed the risks and benefits of cardiac catheterization with intent for revascularization which could be arranged later today. 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 His family is at bedside and agrees with this plan. Thank you for allowing me to participate in the cardiovascular care of this patient. Please do not hesitate to contact me with questions or concerns.
[2018-11-14] MEDS ORDERED: Apixaban* 5 MG TAB PO SCH (10:00)
[2018-11-14] MEDS: Amiodarone TAB* 400 MG PO SCH (10:05)
[2018-11-14 11:44] VITALS: BP 132/48
--- NOTE | 2018-11-14 19:16 | DS ---
CC: Dr. Zaki jackson; Dr. Robe Hernandez; Dr. Roberto Dockery DISCHARGE SUMMARY: DATE OF ADMISSION: 11/11/18 DATE OF DISCHARGE: 11/14/18 PRIMARY CARE PHYSICIAN: Dr. Roberto Dockery. FINAL DISCHARGE DIAGNOSES: 1. Cardiomyopathy, new finding, systolic ejection fraction 20-25% 2. Atrial flutter with RVR, status post cardioversion. 3. Left bundle-branch block, chronic. 4. Hypertension. HOSPITAL COURSE: The patient presented to [facility] on 11/11/18 emergency room for rapid heart rate whe n he felt dehydrated after playing an 18-hole golf game, was slightly dizzy when he was bending and u pside and going back upward. He checked his blood pressure, it was elevated along with fast heart ra te in the 150s. He stayed overnight, reassessed himself in the morning, he continued to have the brooks e symptoms and he came to ER. In the emergency room, he was found to be in atrial flutter with rapid ventricular rate. He was admitted to ICU, started on Cardizem bolus and drip. On the following day , he was seen by Dr. Adryan Henson and he underwent transesophageal echocardiogram which did not re veal any intramural thrombi and he underwent successful cardioversion, which restored the normal sinu s rhythm. He was seen by me post cardioversion, he was having a lot of cardiac atrial premature beat s. I discussed with Cardiology who recommended initiating amiodarone. He was started on amiodarone 400 mg b.i.d. Repeat echocardiogram on 11/14/18 reveals ejection fraction 25-30%, diffuse global hyp okinesis. He was offered to have a cardiac cath to evaluate for any coronary artery disease, the pat ient declined and wanted to be released. Therefore, the patient was evaluated by Cardiology, his medication was optimized and he was cleared f or discharge with outpatient follow up with Dr. Zaki Jackson at the suggestion and recommendation of the patient himself from family member. MEDICATIONS: The patient was discharged on the followin. Tylenol every 4 hours as needed. 2. Amiodarone 400 mg daily. 3. Apixaban 5 mg b.i.d. 4. Lisinopril 10 mg daily. 6. Grandy 1 cap daily. 7. Finasteride 5 mg at bedtime Discontinue nifedipine. PHYSICAL EXAM: His vital signs temperature 97.5, pulse 62, respirations 16, satting 95%, blood press ure 132/48. General: He is awake, alert, oriented, pleasant. Lungs: Clear to to auscultation. Ca rdiovascular: S1, S2. Regular rate and rhythm. Abdomen: Positive bowel sounds, soft, nontender, no ndistended. Extremities: No pedal edema. DISCHARGE RECOMMENDATIONS: 1. Followup with Dr. Zaki Jackson in 1 to 2 weeks. 2. Followup with the primary care in 1 to 2 weeks. INPATIENT DIAGNOSTIC STUDIES: Chest x-ray on admission 11/11/18 did not show any acute infiltrate or consolidation. EKG multiple shows left bundle-branch block with atrial flutter, converted to sinus rhythm and sinus bradycardia after cardioversion. SHERRY on 11/12/18, no intramural thrombus. Cardioversion on 11/12/18, successfully converted his atria l flutter to sinus. A 2D echo on 11/14/18, ejection fraction 25-30%. CONSULTATION: Cardiology with Dr. Adryan Henson and Dr. Robe Hernandez. DISCHARGE DISPOSITION: Home. DISCHARGE CONDITION: Stable. [id number]/[facility] #: [id number]
== END 2018-11-14 11:40 | disposition home or self-care (01) | DRG 310 ==
LOC: ED 13:41 → ICU 15:50 → MEDTELE 11-12 17:56
PROVIDERS: ADMIT Internal Medicine; ATTEND Internal Medicine
PROC: B24BZZ4 Ultrasonography of Heart with Aorta, Transesophageal (ICD-10-PCS; 2018-11-12)
PROC: 5A2204Z Restoration of Cardiac Rhythm, Single (ICD-10-PCS; principal; 2018-11-12 09:15)
DX: I48.92 Unspecified atrial flutter (principal); I42.9 Cardiomyopathy, unspecified; I44.7 Left bundle-branch block, unspecified; I10 Essential (primary) hypertension; N40.0 Benign prostatic hyperplasia without lower urinary tract symptoms; H91.93 Unspecified hearing loss, bilateral; R32 Unspecified urinary incontinence; R79.89 Other specified abnormal findings of blood chemistry; I34.0 Nonrheumatic mitral (valve) insufficiency; R00.1 Bradycardia, unspecified; Z85.828 Personal history of other malignant neoplasm of skin; Z97.4 Presence of external hearing-aid; Z98.52 Vasectomy status; Z82.49 Family history of ischemic heart disease and other diseases of the circulatory system; Z72.89 Other problems related to lifestyle; Z80.0 Family history of malignant neoplasm of digestive organs; Z98.42 Cataract extraction status, left eye; Z98.41 Cataract extraction status, right eye; Z87.891 Personal history of nicotine dependence; Z79.01 Long term (current) use of anticoagulants
CPT/HCPCS: 36415; 71045; 80048; 80053; 80061; 81003; 81015; 82550; 83735; 84100; 84443; 84484; 85025; 85379; 85610; 85652; 86140; 87086; 87641; 92960; 93005; 93306; 93312; 93325; 99156; 99157; 99285; A9270-GY; J0153; J0282; J1650; J2250; J2310; J3010; J3490